=== PATIENT | female | born 2005 | race Two or more races ===

== ENCOUNTER 2025-01-30 20:50 | Emergency (ER) | payer MEDICAID, OTHER ==
[~2025-01-30] VITALS: Ht 162.6 cm; Wt 107.0 kg
[2025-01-30 20:51] VITALS: BP 148/79; PULSE 90; RESP 16; TEMP 98.9; O2SAT 99
== END 2025-01-30 22:15 | disposition left against medical advice (07) ==
LOC: ER 20:50
DX: T78.40XA Allergy, unspecified, initial encounter (principal); Z53.21 Procedure and treatment not carried out due to patient leaving prior to being seen by health care provider; X58.XXXA Exposure to other specified factors, initial encounter

== ENCOUNTER 2025-04-22 02:26 | Emergency (ER) | payer MEDICAID ==
[~2025-04-22] VITALS: Ht 162.6 cm; Wt 111.0 kg
--- NOTE | 2025-04-22 02:40 | ED.PDOC ---
SOB-HPI HPI Comments s Pt c/o CP that started at approx 12p on 04/21/25. Pt states pain to the right side of her chest into her right shoulder. States increased fatigue, shortness of breath, and rates pain "8/10" and describes as "sharp". States she feels the pain more with taking deep breaths and with movement. Denies nausea and vomiting with pain. Pt denies any cold symptoms with pain, dizziness, marianna, fever or chills. Denies any significant history denies history of blood clots, CURRENTLY NOT TAKING ANY CONTROL OR ESTROGEN REPLACEMENT. REPORTS NO RECENT TRAVEL. Chief Complaint: Chest Pain Time Seen by MD: 02:38 Reviewed notes: Nurses Notes, Medications, Allergies Information Source: Patient Mode of Arrival: Ambulatory Past Medical History PAST MEDICAL HISTORY: Denies Surgical History: Denies all surgeries ANIMAL GROOMER History: No Pertinent ANIMAL GROOMER History Family History Family History: Reviewed,noncontributory to illness Social History Smoker: Non-Smoker Alcohol: Denies ETOH Use Drugs: Denies Drug Use All Other Systems: Reviewed and Negative (see hpi) Physical Exam General Appearance: No Apparent Distress, Normal HEENT: Pharynx Normal Neck: Full Range of Motion, Non-Tender Respiratory: Lungs Clear, No Accessory Muscle Use, No Respiratory Distress, Normal Breath Sounds, Other (MODERATE CHEST WALL TENDERNESS ON PALPATION RIGHT CHEST NO NOTED VISIBLE EXTERNAL TRAUMA NO CREPITUS) Cardiovascular: No Edema, No JVD, No Murmur, No Gallop, Normal Peripheral Pulses, Regular Rate/Rhythm Breast Exam: Deferred Gastrointestinal: No Organomegaly, Non Tender, No Pulsatile Mass, Normal Bowel Sounds, Soft Genitalia: Deferred Pelvic: Deferred Rectal: Deferred Extremities: Normal capillary refill, Non-tender Musculoskeletal : Apperance: Normal Neurologic: Alert, No Motor Deficits, Normal Affect, Normal Mood, No Sensory Deficits Cerebellar Function: Normal Reflexes: Normal Skin: Dry, Normal Color, Warm Lymphatic: No Adenopathy Was a procedure done? Was a procedure done?: No Differential Dx Differential Diagnosis: Asthma, Bronchitis, Panic Attack, Pneumonia X-Ray, Labs, Meds, VS Vital Signs Date Time Temp Pulse Resp B/P (MAP) Pulse Ox O2 Delivery O2 Flow Rate FiO2 04/22/25 02:36 69 04/22/25 02:29 98.1 81 20 100 98.1 X-Ray, Labs, Meds, VS Comment CHEST X-RAY IMPRESSION: 1. No evidence of acute disease Chest x-ray shows no cardiopulmonary acute findings. Chest wall with moderate tenderness on exam on palpation. Likely chest wall pain. Patient given Toradol 60 mg IM reports improvement in pain requesting discharge at this time. Script trial of NSAID advised take medication as prescribed side effects discussed. Advised to alternate between ice and heat. Follow up with your PCP in 2-3 days if no improvement ER return precautions given patient indicates understanding agrees with discharge plan of care. Images Reviewed?: Images reviewed and evaluated by me Time of 1ST Reevaluation: 02:38 Reevaluation 1ST: Unchanged Reevaluation 2ND: Improved Patient Education/Counseling: Diagnosis, Treatment, Pt Unresponsive Family Education/Counseling: No Family Present SEPSIS Sepsis Screen Date sepsis recognized/suspect: Apr 22, 2025 Time Sepsis recognized/suspect: 227 Recent Procedure: No On Antibiotic Therapy: No Respiratory Rate >20: No Heart Rate >90: No Temp<36 C (96.8 F) or >38.3 C: No SBP <90 or MAP <65 mmHG: No New Acute Mental Status Change: No Is the patient on CPAP, BIPAP,: No Physician Orders Chest Two Views Routine (04/22/25 02:41) Vital Signs Date Time Temp Pulse Resp B/P (MAP) Pulse Ox O2 Delivery O2 Flow Rate FiO2 04/22/25 02:36 69 04/22/25 02:29 98.1 81 20 100 98.1 Departure 1 Departure Time of Disposition: 03:26 Impression: Primary Impression: Musculoskeletal chest pain Disposition: HOME / SELF CARE / HOMELESS Condition: Stable e-Prescriptions Nabumetone (Nabumetone) 500 Mg Tab 1 TAB PO BID PRN for 7 Days, #14 TAB Prov: HODAN ENGLE 04/22/25 Discharged With: Self Critical Care Note Critical Care Time?: No Stability Stability form required: No Heart Score Heart Score: Heart Score Response (Comments) Value History N/A 0 EKG Normal 0 Age <45 0 Risk Factors N/A 0 Troponin N/A 0 Total 0 HODAN ENGLE Apr 22, 2025 02:40
--- NOTE | 2025-04-22 02:42 | ECG ---
[facility] Test Date: 2025-04-22 Test Time: 02:36:04 Pat Name: [facility] Department: Room: Gender: F Doula: KHANH : 2005 Requested By: HODAN ENGLE Order Number: [id number] Reading MD: Rodriguez Vences Measurements Intervals [place] Rate: 69 P: 80 MS: 123 QRS: 61 QRSD: 74 T: 13 QT: 387 QTc: 415 Interpretive Statements Sinus arrhythmia Probable left atrial enlargement Electronically Signed On 04-25-2025 14:56:12 PDT by Rodriguez Vences Please click the below link to view image of tracing.
--- NOTE | 2025-04-22 03:13 | DVH ---
CHEST RADIOGRAPH Indication: chest pain Technique: Frontal and lateral view of the chest was obtained Comparison: None FINDINGS: Lines and Tubes: None Lungs: Clear Pleura: No effusion. No pneumothorax. Cardiomediastinal contours: Unremarkable Bones: Unremarkable IMPRESSION: 1. No evidence of acute disease.
[2025-04-22] MEDS ORDERED: NABU-72 PO (03:27)
[2025-04-22] MEDS: KETOROLAC TROMETH 60MG/2ML VIAL IM ONE (03:34)
[2025-04-22 03:41] VITALS: BP 138/90; PULSE 86; RESP 20; TEMP 98; O2SAT 99
== END 2025-04-22 03:46 | disposition home or self-care (01) ==
LOC: ER 02:26
DX: R07.89 Other chest pain (principal); M25.511 Pain in right shoulder
CPT/HCPCS: 71046; 93005; 96372; 99283; J1885